=== PATIENT | female | born 1995 | race Caucasian/White ===

== ENCOUNTER 2025-01-11 08:15 | Outpatient (CLI) | payer OTHER, SELFPAY ==
--- NOTE | ~2025-01-11 | MMUS_ITS ---
EXAMINATION: MM diagnostic mohini BI w vitaly, US breast BI complete HISTORY: Breast pain. TECHNIQUE: Additional 3-D tomosynthesis images of the breasts were performed and synthetic 2-D images were generated. CAD analysis was submitted and interpreted. High resolution complete bilateral breas t ultrasound was performed. COMPARISON: No prior studies for comparison. BREAST PARENCHYMAL COMPOSITION: Dense: The breasts are extremely dense, which lowers the sensitivity of mammography. FINDINGS: MAMMOGRAPHIC FINDINGS: There are no suspicious masses, calcifications or architectural distortion in either breast to sugges t malignancy. ULTRASOUND: Complete US of all 4 quadrants of the breast/s and retroareolar region was reviewed. Normal heterogen eous echotexture without focal solid or cystic mass. IMPRESSION: 1. No evidence for malignancy in either breast. 2. Recommend follow-up clinical management for breast pain. Recommend follow-up screening mammogram b eginning at age 40. BI-RADS Category 1: Negative Reviewed, dictated and finalized at location [] IMPRESSION: 1. No evidence for malignancy in either breast. 2. Recommend follow-up clinical management for breast pain. Recommend follow-up screening mammogram beginning at age 40. BI-RADS Category 1: Negative
== END 2025-01-11 08:16 | disposition home or self-care (01) ==
PROVIDERS: PCP Obstetrics & Gynecology; Visit Provider Obstetrics & Gynecology
DX: N64.4 Mastodynia (principal)
CPT/HCPCS: 76641; 77062; 77066; G0279

== ENCOUNTER 2025-02-24 17:33 | Emergency (ER) | payer OTHER, SELFPAY ==
--- NOTE | 2025-02-24 17:34 | ED_ITS ---
HPI - URI/Sore Throat General Chief Complaint: Upper Respiratory Infection Stated Complaint: sore throat Time Seen by Provider: 02/24/25 17:33 Source: patient Mode of arrival: ambulatory Limitations: no limitations History of Present Illness HPI Narrative: Elizabeth is a 29 year old female patient presenting to the clinic today c/o sore throat, nasal congestion, and slight cough x5 days. She reports she has been using cough drops but no other treatment. Denies any fevers, chills, body aches. States that her child has been sick with with fever for 24 hours but her symptoms have resolved. States that her was sick last week but his symptoms have resolved. Denies any chest pain or shortness of breath for Related Data Home Medications ?Medication ?Instructions ?Recorded ?Confirmed ?Last Taken ?Type lamotrigine 25 mg tablet,extended mg PO 02/24/25 Unknown History release 24 hr Allergies Allergy/AdvReac Type Severity Reaction Status Date / Time Penicillins Allergy Mild Rash Verified 02/24/25 17:41 Review of Systems Review of Systems: Pertinent positives per HPI. Patient denies any fever, chills, rash, headache, visual changes, dizziness, cough, shortness of breath, chest pain, palpitations, nausea, vomiting, diarrhea, constipation, abdominal pain, or any urinary issues. PMFSH Comments At the time of my signature, I reviewed and agree with the nursing past medical, surgical, social, and family history. There is no relevant family history pertinent to the patient complaint. Exam Narrative: General: Well-developed, well nourished, in no apparent distress Head: Normocephalic, atraumatic Eyes: Pupils equally round and reactive to light bilaterally, EOM intact, sclera and conjunctive clear, no discharge, lids normal Ears: TMs intact and congested, ear canals clear, no drainage, grossly hearing normal. Nose: Nares patent, clear nasal discharge, no inflammation, no sinus tenderness. Mouth: Oral pharynx red without lesions or masses, good dentition, MMM. Postnasal drip Neck: Supple, trachea midline, no enlargement of anterior or posterior cervical nodes, no thyroid masses or goiter palpable. Cardio: Regular rate and rhythm, s1 and s2 normal, no murmur appreciated. Resp: Clear to auscultation bilaterally, no rhonchi, rales, wheezing or rubs Course Course Emergency Course: Portions of this record may have been created with voice recognition software. Level of Care: Express Care Visit Vital Signs Vital signs: Vital Signs Temperature 36.7 C 02/24/25 17:43 Pulse Rate 81 02/24/25 17:43 Respiratory Rate 18 02/24/25 17:43 Blood Pressure 118/81 02/24/25 17:43 Pulse Oximetry 99 02/24/25 17:43 Oxygen Delivery Room Air 02/24/25 17:43 Temperature 36.7 C 02/24/25 17:43 Pulse Rate 81 02/24/25 17:43 Respiratory Rate 18 02/24/25 17:43 Blood Pressure 118/81 02/24/25 17:43 Pulse Oximetry 99 02/24/25 17:43 Oxygen Delivery Room Air 02/24/25 17:43 Vital signs reviewed MDM - URI/Sore Throat MDM Narrative Medical decision making narrative: At the time of visit patient is resting comfortably on the exam table. Patient appears to be nontoxic. Labs: Strep test was performed and was negative in the clinic today. We will send strep for culture. Plan: I suspect patient has URI/pharyngitis. No sign of bacterial infection in the clinic today. Supportive measures were discussed with the patient and they voiced understanding discharge instructions and agrees to treatment plan. Ret urn precautions reviewed Differential Diagnosis Differential diagnosis: Likely upper respiratory infection, otitis media, sinusitis, viral infection, bronchitis, influenza, pharyngitis and other (Covid) Discharge Plan Discharge Clinical Impression: Upper respiratory infection Qualifiers: URI type: unspecified URI Qualified Code(s): J06.9 - Acute upper respiratory infection, unspecified Pharyngitis Qualifiers: Pharyngitis/tonsillitis etiology: unspecified etiology Qualified Code(s): J02.9 - Acute pharyngitis, unspecified Patient Disposition: Home Condition: Stable Instructions: Antibiotic Form, Pharyngitis (ED), Cold Symptoms (ED) Additional Instructions: Strep test was negative in the clinic today. We will send strep for culture. May take DayQuil/NyQuil for cold/flu symptoms Increase fluids and stay well hydrated Tylenol/motrin for pain/fever Flonase and OTC antihistamines such as Zyrtec or Claritin as directed Vicks vapor rub to open sinuses Sinus rinses for congestion Cepacol spray, cough drops, throat lozenges, warm tea with honey/lemon, gargle salt water to soothe throat BRAT diet for diarrhea Clear liquids x 24 hours then advance as tolerated for nausea/vomiting Go to the ED if you develop a worsening in your condition- high fever not controlled by Tylenol or Motrin, dehydration, weakness, lethargy, shortness of breath, or chest pain. Follow up with your PCP in 3-5 days if symptoms persist. Patient Language: Bahamian Prescriptions: No Action lamotrigine 25 mg tablet extended release 24hr PO Follow-up/Referrals: UNKNOWN,DOCTOR [Primary Care Provider] - Time of Disposition: 17:47 Quality NIHSS Nursing Documentation ED NIHSS nursing documentation: reviewed/agree
--- OUTSIDE RECORDS SUMMARY | 2025-02-24 17:35 | XMS_ITS | Encounter Summary ---
Author Organization [facility] Address [address] [place] [address] Care Team Providers Care Department Of Mathematics Chair Name Role Phone Nurys MiguelNP Primary Care Provider [phone] Jesenia Roberts PA-C Primary Care Provider [phone] Johanne Santos MIXED LIVESTOCK FARM WORKER Primary Care Provider [phone] Encounter Details Date Type Department Care Team (Late st Contact Info) Description 04/16/2022 Therapy Plan [facility] [id number] [place] [address] Charisse Goldstein MD [address] [place] [address] Social History Tobacco Use Types Packs/Day Years Used Date Smoking Tobacco: Never Smokeless Tobacco: Never Comments:non smoker Alcohol Use Standard Drinks/Week Comments Not Currently 0 (1 standard drink = 0.6 oz pur e alcohol) AUDIT-C Answer Date Recorded Frequency of Alcohol Consumption 2-4 times a wed06/01/2019 Average Number of Drinks 5 or 6 019 Frequency of Binge Drinking Not on file 05/23 PHQ-2 Answer Date Recorded PHQ-2 Score - If the patient scores above 3, please move on to questions 3-9 0 11/07/2021 Comments No Sex and Gender Information Value Date Recorded Sex Assigned at Not on file Legal Sex Female 7:05 PM CDT Gender Identity Female 12/24/2021 5:18 AM CDT Sexual Orientation Straight 12/24/2021 5: 18 AM CDT COVID-19 Exposure Response Date Recorded In the last 10 days, have yo u been in contact with someone who was confirmed or suspected to have Coronavirus/COVID-19? No / Unsure 04/19/2022 11:34 AM CDT documented as of this encounter Functional Status * RETIRED Are you deaf or do you have serious difficulty hearing Answer Date of Assessment Author Status No 11/20/2020 1:32 AM CDT Activ e * RETIRED Are you blind or do you have serious difficulty seeing, even when wearing glasses? Answer Date of Assessment Author Status No 11/20/2020 1:32 AM CDT Activ e * Do you have serious difficulty walking or climbing stairs? Answer Date of Assessment Author Status No 11/20/2020 1:32 AM CDT Iman Barajas RN Active * Do you have difficulty dressing or bathing? Answer Date of Assessment Author Status No 11/20/2020 1:32 AM CDT Iman Barajas RN Active * Because of a physical, mental, or emotional condition, do you have difficulty doing errands alone such as visiting a doctor's office or shopping? Answer Date of Assessment Author Status No 11/20/2020 1:32 AM CDT Iman Baarjas RN Active * Calculated C-SSRS Risk Score (Lifetime/Recent) Answer Date of Assessment Author Status No Risk Indicated 04/16/2022 8:23 AM CDT Hermelinda Holcomb RN Active * Andrew Suicide Severity Rating Scale (Screener/Recent Self-Report) Question Answer Date of Assessment Author Status 1. Wish to be (Past 1 Month) No 04/16/2022 8:23 AM MOHINIT Sayda Holcomb RN Ac tive 2. Non-Specific Active Suicidal Thoughts (Past 1 Month) No 04/16/2022 8:23 AM MOHINIT Sayda Holcomb RN Ac tive 6. Suicidal Behavior (Lifetime) No 04/16/2022 8:23 AM MOHINIT Sayda Holcomb RN Ac tive documented as of this encounter Mental Status * Because of a physical, mental, or emotional condition, do you have serious difficulty concentrating, remembering, or making decisions? 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 [place] [address] PCP - General Nurse Practitioner Family 02/11/24 documented as of this encounter
--- OUTSIDE RECORDS SUMMARY | 2025-02-24 17:35 | XMS_ITS | Clinical Summary ---
Author Organization [facility] Address [address] [place] [address] Care Team Providers Care Medical Collections Name Role Phone Johanne Santos CHANGE PERSON Primary Care Provider [phone] Allergies Active Allergy Reactions Criticality Noted Date Comments Nickel Rash Low 06/01/2019 Penicillins Hives,Rash Medium 07/28/2022 Medications vitamin 28-0.6-0.4-340 MG capsule Take 1 capsule by mouth daily. Active polyethylene glycol (MIRALAX MIX-IN PAX) packet Take 240 mLs (17 g total) by mouth daily. 3 Active ferrous sulfate, 65 mg elemental, 325 (65 FE) MG tabletIndicatio ns:Iron deficiency Take 1 tablet (325 mg total) by mouth daily with breakfast. 90 tablet 1 4 Active Additional Information Patient not taking.Reported on 07/06/2024 lamoTRIgine ER (LAMICTAL XR) 25 MG TABLET SR 24 HR 24 hr tablet Take 1 tablet (25 mg total) by mouth nightly at bedtime. 4 Active azithromycin (ZITHROMAX) 250 MG tabletIndicatio ns:Bronchitis,A cute non-recurrent frontal sinusitis Take 2 tablets by mouth on day one then 1 daily for four days. 6 tablet 4 Active Active Problems Problem Noted Date Diagnosed Date Change in bowel function 09/04/2024 Rectal pain 09/04/2024 Generalized anxiety disorder 03/08/2024 Labor abnormal ([facility]) 05/16/2023 ([facility]) 05/15/2023 Dog bite 04/16/2022 PCOS (polycystic ovarian syndrome) 11/07/2021 Irritable bowel syndrome wit h both constipation and diarrhea 11/07/2021 Anxiety 11/07/2021 Resolved Problems Problem Noted Date Diagnosed Date Resolved Date ([facility]) 11/20/2020 11/08/19 Pre-employment health screening examination 11/14/2014 11/10/2021 Immunizations Immunization Administration Dates Next Due Dtap (Generic) 09/02/2020 Fluzone 6 Months+ Quad (0.5 mL Prefilled Syringe ) 05/17/2023 Influenza (Generic) 07/04/2020 Influenza Adult (Generic) 06/18/2022,07/04/2020 MODERNA COVID-19 (RADIOSONDE SPECIALIST KOBY ALEXA), MRNA, LNP-S, PF, 50 MCG/ 0.25 ML DOSE 08/01/2021 Rabies (Rabavert) 04/19/2022,04/16/2022 Tdap (Boostrix) 04/16/2022,09/02/2020 Tdap (Generic) 09/02/2020 Varicella Vaccine 08/30/2013 Family History Medical History Relation Comments None Brother None Father None Mother Breast Cancer Paternal Grandmother Relation Status Comments Brother Alive Father Alive Mother Alive Paternal Grandmother Social History Tobacco Use Types Packs/Day Years Used Date Smoking Tobacco: Never Smokeless Tobacco: Never Tobacco Cessation:Counseling Given: No Comments:non smoker Alcohol Use Standard Drinks/Week Comments Not Currently 0 (1 standard drink = 0.6 oz pur e alcohol) occassional AUDIT-C Answer Date Recorded Frequency of Alcohol Consumption 2-4 times a wed06/01/2019 Average Number of Drinks 5 or 6 019 Frequency of Binge Drinking Not on file 05/23 PHQ-2 Answer Date Recorded Patient Health Questionnaire-2 Score 0 09/11/2022 Comments No Sex and Gender Information Value Date Recorded Sex Assigned at Not on file Legal Sex Female 7:05 PM CDT Gender Identity Female 12/24/2021 5:18 AM CDT Sexual Orientation Straight 12/24/2021 5: 18 AM CDT Last Filed Vital Signs Vital Sign Reading Time Taken Comments Blood Pressure 98/53 09/15/2024 10:45 AM EXECUTIVE DIRECTOR SHELTERED WORKSHOP Pulse 77 09/15/2024 10:45 AM EXECUTIVE DIRECTOR [employer] WORKSHOP Temperature 37.5 C (99.5 F) 09/15/2024 8:52 AM EXECUTIVE DIRECTOR [employer] WORKSHOP Respiratory Rate 18 09/15/2024 10:45 AM EXECUTIVE DIRECTOR [employer] WORKSHOP Oxygen Saturation 100% 09/15/2024 10:45 AM EXECUTIVE DIRECTOR SHEL[employer] WORKSHOP Inhaled Oxygen Concentration - - Weight 45.8 kg (101 lb) 09/15/2024 8:50 AM EXECUTIVE DIRECTOR SHELTER[employer] WORKSHOP Height 157.5 cm (5' 2) 09/15/2024 8:50 AM EXECUTIVE DIRECTOR SHELTER[employer] WORKSHOP Body Mass Index 18.47 09/15/2024 8:50 AM EXECUTIVE DIRECTOR SHELTER[employer] WORKSHOP Plan of Treatment Health Maintenance Due Date Last Done Comments Cervical Cancer Screening Pap Smear (Age 30 to 64) Every 3 Years 1993 Annual Physical 1996 Hepatitis B Vaccines (1 of 3 - 19+ 3-dose series) 2012 Cervical Cancer Screening Pap with HPV Testing (Age 30 to 64) Every 5 Years 2023 Cervical Cancer Screening with HPV 2023 COVID-19 Vaccine ( season) 2024 10/20/2022, 08/01/2021, 01/25/2021, Additional history exists PHQ-2 (Physician [place]) 08/23/2024 DTaP, Tdap and Td Vaccines (6 - Td or Tdap) 04/02/2033 04/02/2023, 04/16/2022, 09/02/2020, Additional history exists Hepatitis C Completed 11/13/2022 HPV Vaccines Aged Out No longer eligi ble based on patient's age to complete this topic Meningococcal B Vaccine Aged Out No l onger eligible based on patient's age to complete this topic Meningococcal Vaccine Aged Out No oscar chas eligible based on patient's age to complete this topic Pneumococcal Vaccine: Pediatrics (0 to 5 Years) and At-Risk Patients (6 to 49 Years) Aged Out No longer eligible based on patient's age to complete this topic RSV Immunizations Under 20 Months Aged Out No longer eligible based on patient's age to complete this topic Procedures Procedure Name Priority Date/Time Associated Diagnosis Comments HEPATITIS C ANTIBODY Routine 11/13/2022 7:42 AM CDT Screening for -associate d plasma protein A (HHS/HCC) from Last 3 Months or Most Recently Relevant to Health Maintenance Results * HEPATITIS C ANTIBODY (11/13/2022 7:42 AM CDT) HEPATITIS C AB NON-REACTI VE NON-REACTI VE 11/13/2022 2:17 PM CDT [facility] 11/13/2022 7:42 AM CDT [facility] Final Result [facility] [address] [place] [address], from Last 3 Months or Most Recently Relevant to Health Maintenance Insurance R Advance Directives * Full Code (Latest Code Status on File) Date Activated Date Inactivated Comments 05/15/2023 1:09 AM 05/15/2023 2:46 PM * Full Code Date Activated Date Inactivated Comments 04/16/2023 3:57 PM 04/16/2023 7:33 PM * Full Code Date Activated Date Inactivated Comments 11/20/2020 1:00 AM 11/22/2020 9:28 PM * Full Code Date Activated Date Inactivated Comments 08/12/2020 8:25 PM 08/12/2020 11:44 PM Care Teams Medical Collections Relationship Specialty Start Date End Date Johanne Santos, JOE [address] [address] PCP - General Nurse Practitioner Family 02/11/24
[2025-02-24 17:43] VITALS: BP 118/81; PULSE 81; RESP 18; TEMP 36.7; O2SAT 99
[2025-02-24 17:50] LABS: EDSTREPNEGPOS1 Negative (Negative)
== END 2025-02-24 17:51 | disposition home or self-care (01) ==
PROVIDERS: Emergency Provider Nurse Practitioner Family
DX: J06.9 Acute upper respiratory infection, unspecified (principal); J02.9 Acute pharyngitis, unspecified
CPT/HCPCS: 87081; 87880; 99203; G0463

== ENCOUNTER 2025-08-02 12:54 | Outpatient (CLI) | payer OTHER, SELFPAY | END 2025-08-02 12:55 | disposition home or self-care (01) | DX: R00.2 Palpitations (principal) | CPT/HCPCS: 93242 ==